=== PATIENT | female | born 1930 | race Caucasian/White ===

== ENCOUNTER 2018-08-25 19:26 | Emergency (ER) | payer MEDICARE, OTHER ==
[~2018-08-25] VITALS: Ht 167.6 cm; Wt 71.2 kg
[2018-08-25] MEDS ORDERED: [UNRECOGNIZED DRUG - OTHER] (19:34)
--- NOTE | 2018-08-25 19:35 | NUR ---
Patient arrive at the ER with chief complaint of cough. Patient AAOx4. Able to speak full sentences. Patient reported she had a head cold that started last Thursday08/18/18 and started having a cough by Thursday. Did not feel well by Thursday and Thursday and now while cooking dinner she started not feeling well again, having SOB and wheezing. In no acute respiratory distress. Noted with wet but non-productive cough. Lung sound CTA. No wheezing or rhonchi noted. No cardiovascular concern. No /GI concern. Bed on low position. Fall precaution per protocol.
--- NOTE | 2018-08-25 19:41 | NUR ---
LENNOX BELTRE at bedside for MSE.
--- NOTE | 2018-08-25 19:50 | NUR ---
Influenza swab done and sent to lab.
--- NOTE | 2018-08-25 19:51 | NUR ---
Radiology at bedside for CXR.
--- NOTE | 2018-08-25 20:14 | NUR ---
LENNOX BELTRE at bedside.
--- NOTE | 2018-08-25 20:20 | NUR ---
Patient discharged to home in stable conditon. Written and verbal after care instructions given. Patient verbalizes understanding of instructions. Patient ambulated from the ER with steady gait. All belongings with patient.
== END 2018-08-25 20:21 | disposition home or self-care (01) ==
LOC: ER 19:26
DX: Z00.00 Encounter for general adult medical examination without abnormal findings (principal); R53.1 Weakness; R05 Cough; R06.02 Shortness of breath; Z90.710 Acquired absence of both cervix and uterus; Z79.899 Other long term (current) drug therapy
CPT/HCPCS: 71045; 87400; A4663